=== PATIENT | female | born 1990 | race Caucasian/White ===

== ENCOUNTER 2016-11-22 11:29 | Emergency (ER) | payer BC, OTHER ==
[2016-11-22 11:34] VITALS: BP 122/63; PULSE 65; RESP 20; TEMP 98.8; O2SAT 99
--- NOTE | 2016-11-22 11:48 | PD ---
Physical Exam Time Seen by Provider: 11:47 Narrative 26 y/o female here with Cough with green/yellow mucous, congestion for one month. Seen by PCP, on an unknown antibiotic for one week. Vital signs reviewed. Seen at triage desk. Awaiting bed placement. Data Data Last Documented VS Vital Signs Date Time Temp Pulse Resp B/P Pulse Ox O2 Delivery O2 Flow Rate FiO2 11/22/16 11:34 98.8 65 20 122/63 99 Room Air [facility] Medical Record Reviewed: Yes Supervised Visit with ANDREW: No Clem Riggins Nov 22, 2016 11:48
--- NOTE | 2016-11-22 11:54 | PD ---
HPI . cough x 1 mt Chief Complaint: Cold / Flu Symptoms Time Seen by Provider: 11:55 Travel History International Travel<30 days: No Contact w/Intl Traveler<30days: No Traveled to known affect area: No History of Present Illness HPI 26 year old female here with reported complaints of cough 1 month. Patient states that she was previously treated by her primary care provider with antibiotics and has not gotten better. Patient reports that she is constantly coughing. She does admit to smoking marijuana and thinks this may have contributed to her issues, however she's not been smoking for the past week and is still coughing. She denies any fever chills. She has no other complaints. She denies any history of asthma. PFS Past Medical History Blood Disorders: Yes (HELLP syndrome 2009) Diminished Hearing: No Immunizations Current: No ?: Unknown LMP: 10/28/16 : 2 Para: 1 Past Surgical History Section: Yes Gynecologic Surgery: Yes ( ) Social History Alcohol Use: No Tobacco Use: No Substance Use: Yes (MARIJUANA) Allergies-Medications (Allergen,Severity, Reaction): Coded Allergies: No Known Allergies (Verified , 08/27/15) Reported Meds & Prescriptions Reported Meds & Active Scripts Active Flonase Nasal [place] (Fluticasone Nasal [place]) 50 Mcg/Act [place] 50 Mcg EACH NARE BID Review of Systems General / Constitutional: No: Fever Eyes: No: Visual changes HENT: No: Headaches Cardiovascular: No: Chest Pain or Discomfort Respiratory: No: Shortness of Breath Gastrointestinal: No: Abdominal Pain Genitourinary: No: Dysuria Musculoskeletal: No: Pain Skin: No Rash Neurologic: No: Weakness Psychiatric: No: Depression Endocrine: No: Polydipsia Hematologic/Lymphatic: No: Easy Bruising Physical Exam Narrative GENERAL: AAO x 3, no acute distress, Well-nourished, well-developed patient. SKIN: Warm and dry. No visible rashes or bruising. HEAD: Normocephalic and atraumatic. EYES: No scleral icterus. No injection or drainage. ENT: No nasal drainage noted. Mucous membranes pink. Airway patent. No oropharynx abn. TMs normal bilaterally. NECK: Supple, trachea midline. No JVD. No lymphadenopathy CARDIOVASCULAR: Regular rate and rhythm without murmurs, gallops, or rubs. RESPIRATORY: Breath sounds equal bilaterally. No accessory muscle use. No rhonchi or rales. No wheezing. GASTROINTESTINAL: Visual inspection normal EXTREMITIES: No cyanosis or edema. BACK: No obvious deformity. NEURO: CN II-12 intact, PSYCH: AAO x 3, normal affect. Data Data Last Documented VS Vital Signs Date Time Temp Pulse Resp B/P Pulse Ox O2 Delivery O2 Flow Rate FiO2 11/22/16 13:44 Room Air 11/22/16 11:34 98.8 65 20 122/63 99 Orders Chest, Single Ap (11/22/16 ) [facility] Medical Decision Making Medical Screen Exam Complete: Yes Emergency Medical Condition: Yes Medical Record Reviewed: Yes Differential Diagnosis Smoker's cough, allergic rhinitis, less likely pneumonia Narrative Course 26 yr old female here with cough 1 month. She has already completed antibiotics. I will go and check a chest x-ray. I do not suspect there will be any type of pneumonia or abnormality. CXR ordered. 1300: Discussed with patient we are waiting on final read of xray. xray is normal Discussed with patient. Xray normal. recommend PCP f/u I advised her that I feel her cough is more allergic in nature and therefore I recommend a trial of Flonase. She was in agreement. Patient verbalized understanding of instructions, questions were answered, and thanked me for their care. I advised them if their condition worsens, please return to the nearest emergency room for further care. Diagnosis Primary Impression: Cough Additional Impression: Allergic rhinitis Qualified Code: J30.9 - Acute allergic rhinitis, unspecified seasonality, unspecified trigger Patient Instructions: General Instructions Additional Instructions: Please return to emergency department if your symptoms return or worsen. Follow up with your primary care provider. Med/Other Pt SpecificInfo: Prescription(s) given Scripts Fluticasone Nasal [place] (Flonase Nasal [place])50 Mcg/Act Spray50 Mcg EACH NARE BID #1 BOTTLE Ref 0 Prov:Delta Lewis MD 11/22/16 Disposition: 01 DISCHARGE HOME Condition: Stable Dayna Sanders Nov 22, 2016 11:53
--- NOTE | 2016-11-22 14:26 | RADRPT ---
EXAM DATE/TIME: 11/22/2016 12:12 [place] COMPARISON: CHEST PA & LAT, May 08, 2015, 21:10. INDICATIONS : Short of breath. MEDICAL HISTORY : None. SURGICAL HISTORY : None. ENCOUNTER: Initial ACUITY: 1 day PAIN SCORE: 0/10 LOCATION: Bilateral chest FINDINGS: A single view of the chest demonstrates the lungs to be symmetrically aerated without evidence of mas s, infiltrate or effusion. The cardiomediastinal contours are unremarkable. Osseous structures are intact. CONCLUSION: Normal examination. Ronald Jaimes MD on November 22, 2016 at 14:25 Board Certified Radiologist. This report was verified electronically.
[2016-11-22] MEDS ORDERED: FLUT1SPR5 EACH NARE (14:30)
== END 2016-11-22 14:45 | disposition home or self-care (01) ==
LOC: NEPK 11:29
DX: R05 Cough (principal); J30.9 Allergic rhinitis, unspecified
CPT/HCPCS: 71010; 99283